=== PATIENT | male | born 1995 | race Caucasian/White ===

== ENCOUNTER 2017-05-30 20:40 | Emergency (ER) | payer BC ==
[2017-05-30 20:56] VITALS: BP 131/77
--- NOTE | 2017-05-30 21:05 | ED ---
Laceration/Wound HPI - HPI Summary HPI Summary: 22M presents for suture removal. Sutures were placed 7 days ago in the ED. he cut his finger on a knife. no foreign body. no fever, pus or spreading redness. has not been placing anything on wound. no numbness or tingling. full ROM of finger. no evidence of dehiscence. - History of Current Complaint Stated Complaint: SUTURE REMOVAL Time Seen by Provider: 05/30/17 20:57 Pain Intensity: 0 - Allergy/Home Medications Allergies/Adverse Reactions: Allergies Allergy/AdvReac Type Severity Reaction Status Date / Time No Known Allergies Allergy Verified 05/30/17 20:57 PMH/Surg Hx/FS Hx/Imm Hx Endocrine/Hematology History: Denies: Hx Anticoagulant Therapy Psychiatric History: Denies: Hx Anxiety Infectious Disease History: No Infectious Disease History: Denies: Traveled Outside the in Last 30 Days - Family History Known Family History: Negative: Diabetes - Social History Alcohol Use: Weekly Alcohol Amount: weekends Substance Use Type: Reports: None Smoking Status (MU): Heavy Every Day Tobacco Smoker Type: Cigarettes Amount Used/How Often: 1 pack daily Length of Time of Smoking/Using Tobacco: 3-4 years Have You Smoked in the Last Year: Yes Review of Systems Negative: Fever Negative: Chest Pain Negative: Shortness Of Breath Positive: Other - suture removal left index finger All Other Systems Reviewed And Are Negative: Yes Physical Exam Triage Information Reviewed: Yes Vital Signs On Initial Exam: Initial Vitals Temp Pulse Resp BP Pulse Ox 97.7 F 94 18 131/77 100 05/30/17 20:53 05/30/17 20:53 05/30/17 20:53 05/30/17 20:53 05/30/17 20:53 Vital Signs Reviewed: Yes Appearance: Positive: Well-Appearing Skin: Positive: Warm, Dry, Other - 2cm semicircular healing laceration with 5 sutures that removed, mild erythema around without warmth Head/Face: Positive: Normal Head/Face Inspection Eyes: Positive: Normal, Conjunctiva Clear Respiratory/Lung Sounds: Positive: Clear to Auscultation, Breath Sounds Present Cardiovascular: Positive: Normal, RRR Musculoskeletal: Positive: Strength/ROM Intact - left index finger, Edema Left - MCP mild, Other - good pulses, capillary refill<2 secs Neurological: Positive: Normal Psychiatric: Positive: Normal Diagnostics - Vital Signs Vital Signs Temp Pulse Resp BP Pulse Ox 05/30/17 20:53 97.7 F 94 18 131/77 100 - Laboratory Lab Statement: Any lab studies that have been ordered have been reviewed, and results considered in the medical decision making process. Laceration Repair Course/Dx - Course Course Of Treatment: 22M presents for suture removal. Sutures were placed 7 days ago in the ED. he cut his finger on a knife. no foreign body. no fever, pus or spreading redness. has not been placing anything on wound. no numbness or tingling. full ROM of finger. no evidence of dehiscence. on exam has 2cm healing laceration with 5 sutures that removed on left index at MCP. no evidence of dehiscence, some erythema but no warmth, does not appear cellulitic , no drainage from wound, mild edema to MCP but full ROM of finger, neurovascular intact. will have keep wound clean and place neosporin. warned of signs of infection to return. will have establish care with primary as has pre- htn blood pressure. patient understand and agrees with plan. - Differential Dx Differental Diagnoses: Cellulitis, Dehiscence, Laceration, Other - suture removal - Clinical Impression Provider Diagnoses: Visit for suture removal Discharge - Sign-Out/Discharge Documenting (check all that apply): Discharge - Discharge Plan Condition: Good Disposition: HOME Patient Education Materials: Stitches Removal (ED) Referrals: [facility] [Outside] Additional Instructions: Wash hands with soap and water twice a day apply neosporin Establish care with primary Return to urgent care if develop spreading redness, fever, or pus or any new or worsening symptoms - Billing Disposition and Condition Condition: GOOD Disposition: HOME
== END 2017-05-30 21:15 | disposition home or self-care (01) ==
LOC: UCCORT 20:40
DX: S61.211D Laceration without foreign body of left index finger without damage to nail, subsequent encounter (principal); W26.0XXD Contact with knife, subsequent encounter; F17.210 Nicotine dependence, cigarettes, uncomplicated
CPT/HCPCS: 99201; G0463